=== PATIENT | female | born 1985 | race African-American/Black ===

== ENCOUNTER 2017-04-12 00:30 | Inpatient (IN) | payer BC ==
[2017-04-12 01:39] LABS: BASO % 0.3 % (0-2.0); EOS % 0.5 % (0-4.5); HEMATOCRIT 37.1 % (32.4-45.2); HEMOGLOBIN 12.2 GM/dL (10.7-15.3); LYMPH % 17.1 % (8-40); MCH 31.8 pg (25.7-33.7); MCHC 32.8 g/dl (32.0-36.0); MEAN CELL VOLUME 97.1 fl (80-96); MEAN PLT VOLUME 9.9 fl (7.5-11.1); MONO % 11.8 % (3.8-10.2); NEUT % 70.3 % (42.8-82.8); PLATELET COUNT 164 K/MM3 (134-434); RBC 3.82 M/mm3 (3.60-5.2); RDW 13.9 % (11.6-15.6); WHITE BLOOD COUNT 11.6 K/mm3 (4.0-10.0)
[2017-04-12 01:55] LABS: INR 0.92 (0.82-1.09); PROTHROMBIN TIME (PATIENT) 10.4 SEC (9.98-11.88)
[2017-04-12 01:58] LABS: ACTIVATED PTT 24.3 SECONDS (26.9-34.4)
[2017-04-12 02:01] VITALS: BMI 28.8
[2017-04-12 02:02] LABS: ANION GAP 11 (8-16); BLOOD UREA NITROGEN 9 mg/dL (7-18); CALCIUM 9.3 mg/dL (8.5-10.1); CHLORIDE 104 mmol/L (98-107); CO2 24 mmol/L (21-32); CREATININE 0.6 mg/dL (0.55-1.02); GLUCOSE,RANDOM 83 mg/dL (74-106); SODIUM 139 mmol/L (136-145)
[2017-04-12] MEDS ORDERED: FENTANYL/BUPIVACAINE/NS/PF - PCEA - 50 ML DISP.SYRIN EP ONE (02:21)
[2017-04-12] MEDS ORDERED: NALOXONE HCL 0.4 MG/ML VIAL IVPUSH PRN (02:37)
[2017-04-12] MEDS ORDERED: FENTANYL/BUPIVACAINE/NS/PF - PCEA - 50 ML DISP.SYRIN EP SCH (02:45)
[2017-04-12] MEDS ORDERED: LIDOCAINE HCL 1% PRESERVATIVE FREE - 30ML VIAL ONE (03:56)
[2017-04-12] MEDS ORDERED: OXYTOCIN 20 UNITS in 0.9% NS 20 UNIT/1,000 ML INFUS.BAG IV ONE ×4 (03:57→08:44)
--- NOTE | 2017-04-12 04:25 | HP ---
Past Medical History - Primary Care Physician PCP:: Eddie Ramos - Admission Chief Complaint: 41 weeks, labor History of Present Illness: 31 yo f g 4 p2012 edc by sono 04/07/17 in labor cx 3 cm 80 vx -2 mi, fhr cat 2.contraction irregular History Source: Patient Limitations to Obtaining History: No Limitations - Past Medical History ...: 4 ...Para: 2 ...Term: 2 ...: 0 ...Spon : 0 ...Induced : 1 ...Multiple Gestation: 0 ...LMP: 06/18/16 ... Weeks Gestation by Dates: 42.4 ...EDC by Dates: 03/25/17 ...EDC by Sono: 04/07/17 - Past Surgical History Past Surgical History: Yes: None Hx Myomectomy: No Hx Transabdominal Cerclage: No - Smoking History Smoking history: Never smoked Have you smoked in the past 12 months: No - Alcohol/Substance Use Hx Alcohol Use: No - Social History Usual Living Arrangement: Yes: With Spouse History of Recent Travel: No Home Medications - Allergies Allergies/Adverse Reactions: Allergies Allergy/AdvReac Type Severity Reaction Status Date / Time No Known Allergies Allergy Verified 01/25/15 06:56 - Home Medications Home Medications: Ambulatory Orders Vitamins (Sjr) - 1 tab PO DAILY 01/24/15 Ibuprofen [Motrin -] 400 mg PO QID #28 tablet 01/26/15 Review of Systems - Review of Systems Constitutional: reports: No Symptoms Eyes: reports: No Symptoms HENT: reports: No Symptoms Neck: reports: No Symptoms Cardiovascular: reports: No Symptoms Respiratory: reports: No Symptoms Gastrointestinal: reports: No Symptoms Genitourinary: reports: No Symptoms Breasts: reports: No Symptoms Reported Musculoskeletal: reports: No Symptoms Integumentary: reports: No Symptoms Neurological: reports: No Symptoms Endocrine: reports: No Symptoms Hematology/Lymphatic: reports: No Symptoms Psychiatric: reports: No Symptoms Physical Exam - Maternity Vital Signs: Vital Signs Temperature 98.5 F 04/12/17 03:00 Pulse Rate 89 04/12/17 02:00 Respiratory Rate 20 04/12/17 02:00 Blood Pressure 127/75 04/12/17 02:00 O2 Sat by Pulse Oximetry (%) Constitutional: Yes: Well Nourished, No Distress, Calm Eyes: Yes: WNL, Conjunctiva Clear, EOM Intact HENT: Yes: WNL, Atraumatic, Normocephalic Neck: Yes: WNL, Supple, Trachea Midline Cardiovascular: Yes: WNL, Regular Rate and Rhythm Breast(s): Yes: WNL - Abdominal Exam/OB Fundal Height: 40 Number of Fetuses: Single Presentation: Vertex Regularity: Irregular Intensity: Mod/Strong Monitor Mode: External Heart Rate Location: [facility] Category: II Accelerations: Non-Uniform Decelerations: Variable - Vaginal Exam/OB Vaginal Bleediing: Bloody Show Speculum Exam: No Dilatation (cm): 3 cm Effacement (%): 80 Amniotic Membrane Status: Bulging Presentation: Vertex/Position Station: -2 - Physical Exam Musculoskeletal: Yes: WNL Extremities: Yes: WNL Edema: Yes Edema: LLE: Trace, RLE: Trace Deep Tendon Reflex Grade: Normal +2 Psychiatric: Yes: WNL - Labs Lab Results: CBC, BMP 04/12/17 01:30 04/12/17 01:30 Hemorrhage Risk Assessment - Risk Factors Medium Risk Factors: Yes: None High Risk Factors: Yes: None Risk Score: 1 Risk Level: Medium Risk Problem List - Problems (1) with 41 completed weeks gestation Code(s): Z3A.41 - 41 WEEKS GESTATION OF (2) Labor established Code(s): GJV3301 - Assessment/Plan plan admit, monitor FH, pain management
--- NOTE | 2017-04-12 04:28 | PN ---
Progress Note (short form) - Note Progress Note: 110 am cx 3 cm 80 vx -2 , variable decel , with good recovery, and good variability, scalp electrode applied, cont heart monitroing Problem List - Problems (1) with 41 completed weeks gestation Code(s): Z3A.41 - 41 WEEKS GESTATION OF (2) Labor established Code(s): BDL9044 -
--- NOTE | 2017-04-12 04:30 | PN ---
Progress Note (short form) - Note Progress Note: 4 am , cx 9 cm vx OP .variable decel, persistant ,but good BTB and accel on scalp simulation, good recovery , will monitor closly if no descent will do c/s Problem List - Problems (1) with 41 completed weeks gestation Code(s): Z3A.41 - 41 WEEKS GESTATION OF (2) Labor established Code(s): [id number] -
[2017-04-12] MEDS ORDERED: WITCH HAZEL 50% (TUCKS) 40 PAD/JAR PAD TP PRN (04:40)
[2017-04-12] MEDS ORDERED: METHYLERGONOVINE MALEATE 0.2 MG/1 ML AMP IM PRN (04:40)
[2017-04-12] MEDS ORDERED: diphenhydrAMINE HCL 25 MG CAPSULE (FP) PO PRN (04:40)
[2017-04-12] MEDS ORDERED: IBUPROFEN 800 MG/8 ML IJ IVPB PRN ×2 (04:40→05:22)
[2017-04-12] MEDS ORDERED: BENZOCAINE 28 GM HEMORRHOIDAL OINTMENT PR PRN (04:40)
[2017-04-12] MEDS ORDERED: BENZOCAINE 20% 57 GM BOTTLE TP PRN (04:40)
[2017-04-12] MEDS ORDERED: oxyCODONE HCL 5 MG TABLET PO PRN ×2 (04:40)
[2017-04-12] MEDS ORDERED: DEXTROSE 5%-LACTATED RINGERS 1,000 ML IV SCH (04:45)
[2017-04-12] MEDS ORDERED: OXYTOCIN 20 UNITS in 0.9% NS 20 UNIT/1,000 ML INFUS.BAG IV SCH (04:45)
--- NOTE | 2017-04-12 04:50 | PN ---
Progress Note (short form) - Note Progress Note: deep variable decel cont. no descent advised c/s, rba discussed Problem List - Problems (1) with 41 completed weeks gestation Code(s): Z3A.41 - 41 WEEKS GESTATION OF (2) Labor established Code(s): [id number] -
[2017-04-12] MEDS ORDERED: ceFAZolin SODIUM 1 GM VIAL ONE ×2 (05:01→12:48)
[2017-04-12] MEDS ORDERED: OXYTOCIN 10 UNITS/ML VIAL ONE (05:01)
[2017-04-12] MEDS ORDERED: morphine SULFATE/Preservative Free 0.5 MG/ML (1cc Syringe) ONE ×7 (05:05)
[2017-04-12] MEDS ORDERED: morphine SULFATE/Preservative Free 0.5 MG/ML (1cc Syringe) EP ONE (05:21)
[2017-04-12] MEDS ORDERED: ONDANSETRON 4 MG/2 ML VIAL IVPUSH PRN (05:21)
[2017-04-12 05:35] LABS: VENOUS PC02 48.2 mmHg (38-52); VENOUS PH 7.32 (7.32-7.42); VENOUS PO2 28.5 mmHg (28-48)
[2017-04-12 05:38] LABS: ARTERIAL BLOOD GAS PCO2 72.7 mmHg (35-45); ARTERIAL BLOOD GAS PO2 7.8 mmHg (80-100); ARTERIAL BLOOD GAS pH 7.19 (7.35-7.45)
[2017-04-12] MEDS ORDERED: MEPERIDINE HCL CARPU-JECT 50 MG/1 ML DISP.SYRIN IVPUSH ONE (05:46)
[2017-04-12] MEDS ORDERED: MEPERIDINE HCL CARPU-JECT 50 MG/1 ML DISP.SYRIN ONE (05:47)
[2017-04-12] MEDS ORDERED: IBUPROFEN 800 MG/8 ML IJ IVPB ONE (10:25)
[2017-04-12] MEDS: CEFAZOLIN 1 GM PUSH 1 GM/10 ML DISP.SYRIN IVPUSH SCH ×2 (12:58→21:19)
--- NOTE | 2017-04-12 18:39 | OP ---
DATE OF OPERATION: 04/12/2017 PREOPERATIVE DIAGNOSIS: 41 weeks, labor, nonreassuring heart rate, and failure to descend. POSTOPERATIVE DIAGNOSIS: 41 weeks, labor, nonreassuring heart rate, and failure to descend. PROCEDURE: Primary low segment transverse section. SURGEON: Yesika Ramos M.D. MEDICAL VAN DRIVER: Roxanne Joshi ANESTHESIA: Epidural. ANESTHESIOLOGIST: Reed Restrepo M.D. ESTIMATED BLOOD LOSS: 500 mL. FINDINGS: A live baby boy, direct occiput posterior, cord around the neck x1, meconium amniotic fluid. OPERATION: Patient was taken to operating room with adequate epidural anesthesia. Abdomen and perineum were prepped and draped. Pfannenstiel abdominal skin incision was made. Abdominal wall was cut layer by layer until the peritoneum was exposed and incised. Upon entering the abdominal cavity, the lower uterine segment was identified, and uterovesical fold of the peritoneum was established. The bladder was pushed down. Then with the lower blade of the Belk retractor in the pelvis, a low transverse uterine incision was made. The incision extended laterally with band-aid scissors. Amniotic sac was entered. Light meconium amniotic fluid noted. Baby was in direct occiput posterior position with cord around the neck x1, which was reduced. Live baby boy was delivered without any difficulty. Apgars 9 and 9. Placenta was delivered manually. Uterine cavity was cleared of all remaining tissue. Uterine incision was closed in 2 layers, the 1st layer with 0 Biosyn continuous suture, the 2nd layer with 0 Biosyn imbricating the 1st layer. Bladder flap was closed with 0 Biosyn continuous suture. Both tubes and ovaries were checked and were normal. No active bleeding was seen. All the lap, sponge, and instrument counts were correct. Peritoneum was closed with 0 Biosyn continuous suture. Muscles were brought together with interrupted suture with 0 Biosyn. Fascia was closed with 0 Biosyn continuous sutures. Subcutaneous fat interrupted sutures 0 Biosyn, and the skin was closed with angelique. The patient tolerated the procedure well and left the OR in good condition. YESIKA RAMOS M.D. [id number]
[2017-04-13] MEDS ORDERED: BISACODYL 10 MG SUPP.RECT PR PRN (04:40)
[2017-04-13 07:03] LABS: BASO % 0.1 % (0-2.0); EOS % 0.3 % (0-4.5); HEMATOCRIT 35.5 % (32.4-45.2); HEMOGLOBIN 11.6 GM/dL (10.7-15.3); LYMPH % 12.2 % (8-40); MCH 32.1 pg (25.7-33.7); MCHC 32.7 g/dl (32.0-36.0); MEAN CELL VOLUME 98.1 fl (80-96); MEAN PLT VOLUME 10.1 fl (7.5-11.1); MONO % 11.6 % (3.8-10.2); NEUT % 75.8 % (42.8-82.8); PLATELET COUNT 143 K/MM3 (134-434); RBC 3.62 M/mm3 (3.60-5.2); RDW 13.9 % (11.6-15.6); WHITE BLOOD COUNT 15.5 K/mm3 (4.0-10.0)
--- NOTE | 2017-04-13 07:27 | PN ---
Post Progress Note - Subjective Subjective: 31 yo Para 3 status post primary , seen and evaluated. Doing well. Post Day: 1 Type of Delivery: Primary C/S Vital Signs: Vital Signs Temperature 98.2 F 04/13/17 05:36 Pulse Rate 86 04/13/17 05:36 Respiratory Rate 20 04/13/17 06:00 Blood Pressure 125/66 04/13/17 05:36 O2 Sat by Pulse Oximetry (%) 98 04/12/17 14:30 Breast Exam: Yes: Soft Uterus: Yes: Fundus Firm Incision: Yes: Dressing dry and intact Abdomen/GI: Yes: Abdomen soft, Tolerating PO Lochia: Yes: Rubra Lochia, amount: Small Extremities: Yes: Calves non-tender Perineum: Yes: Intact Activity: Ambulating - Labs Labs: CBC WBC 11.6 K/mm3 (4.0-10.0) H 04/12/17 01:30 RBC 3.82 M/mm3 (3.60-5.2) 04/12/17 01:30 Hgb 12.2 GM/dL (10.7-15.3) 04/12/17 01:30 Hct 37.1 % (32.4-45.2) 04/12/17 01:30 MCV 97.1 fl (80-96) H 04/12/17 01:30 MCH 31.8 pg (25.7-33.7) 04/12/17 01:30 MCHC 32.8 g/dl (32.0-36.0) 04/12/17 01:30 RDW 13.9 % (11.6-15.6) 04/12/17 01:30 Plt Count 164 K/MM3 (134-434) 04/12/17 01:30 MPV 9.9 fl (7.5-11.1) 04/12/17 01:30 Neutrophils % 70.3 % (42.8-82.8) 04/12/17 01:30 Lymphocytes % 17.1 % (8-40) D 04/12/17 01:30 Monocytes % 11.8 % (3.8-10.2) H 04/12/17 01:30 Eosinophils % 0.5 % (0-4.5) 04/12/17 01:30 Basophils % 0.3 % (0-2.0) 04/12/17 01:30 Problem List - Problems (1) Status post primary low transverse section Code(s): Z98.891 - HISTORY OF UTERINE SCAR FROM PREVIOUS SURGERY Assessment/Plan Status post primary Ambulation Analgesia as needed Continue routine post op care
[2017-04-13] MEDS ORDERED: DIPHTH,PERTUSS(ACELL),TET 0.5 ML DISP.SYRIN IM ONE (10:00)
[2017-04-13] MEDS: IBUPROFEN 600 MG TABLET (FP) PO PRN (12:35)
[2017-04-13] MEDS: SIMETHICONE 80 MG TAB.CHEW (FP) PO PRN (12:36)
--- NOTE | 2017-04-13 13:13 | PN ---
Progress Note (short form) - Note Progress Note: S/P C section under epidural anesthesia with duramorph unevenful.Patient stable and has a little pain for which she is on medication.No any anesthesia related problem.Patient DC from the anesthesia care.
--- NOTE | 2017-04-14 09:12 | PN ---
Post Progress Note - Subjective Subjective: 31 yo Para 3 status post primary seen and evaluated. Doing well. Post Day: 2 Type of Delivery: Primary C/S Vital Signs: Vital Signs Temperature 99.1 F 04/14/17 08:32 Pulse Rate 72 04/14/17 08:32 Respiratory Rate 18 04/14/17 08:32 Blood Pressure 129/69 04/14/17 08:32 O2 Sat by Pulse Oximetry (%) 98 04/12/17 14:30 Breast Exam: Yes: Soft Uterus: Yes: Fundus Firm Incision: Yes: Dressing dry and intact Abdomen/GI: Yes: Abdomen soft Lochia: Yes: Rubra Lochia, amount: Small Extremities: Yes: Calves non-tender Perineum: Yes: Intact Activity: Ambulating - Labs Labs: CBC WBC 15.5 K/mm3 (4.0-10.0) H D 04/13/17 06:15 RBC 3.62 M/mm3 (3.60-5.2) 04/13/17 06:15 Hgb 11.6 GM/dL (10.7-15.3) 04/13/17 06:15 Hct 35.5 % (32.4-45.2) 04/13/17 06:15 MCV 98.1 fl (80-96) H 04/13/17 06:15 MCH 32.1 pg (25.7-33.7) 04/13/17 06:15 MCHC 32.7 g/dl (32.0-36.0) 04/13/17 06:15 RDW 13.9 % (11.6-15.6) 04/13/17 06:15 Plt Count 143 K/MM3 (134-434) 04/13/17 06:15 MPV 10.1 fl (7.5-11.1) 04/13/17 06:15 Neutrophils % 75.8 % (42.8-82.8) 04/13/17 06:15 Lymphocytes % 12.2 % (8-40) D 04/13/17 06:15 Monocytes % 11.6 % (3.8-10.2) H 04/13/17 06:15 Eosinophils % 0.3 % (0-4.5) 04/13/17 06:15 Basophils % 0.1 % (0-2.0) 04/13/17 06:15 Problem List - Problems (1) Status post primary low transverse section Code(s): Z98.891 - HISTORY OF UTERINE SCAR FROM PREVIOUS SURGERY Assessment/Plan Status post primary Ambulation Analgesia as needed Continue routine post op care
[2017-04-14] MEDS ORDERED: SENNOSIDES/DOCUSATE COMBO (SENNA PLUS) TABLET (UD) PO PRN (22:00)
[2017-04-15] MEDS: SIMETHICONE 80 MG TAB.CHEW (FP) PO PRN (05:29)
[2017-04-15] MEDS: IBUPROFEN 600 MG TABLET (FP) PO PRN (05:29)
[2017-04-15 07:44] LABS: BASO % 0.2 % (0-2.0); EOS % 0.5 % (0-4.5); HEMATOCRIT 31.4 % (32.4-45.2); HEMOGLOBIN 10.5 GM/dL (10.7-15.3); LYMPH % 13.4 % (8-40); MCH 32.4 pg (25.7-33.7); MCHC 33.4 g/dl (32.0-36.0); MEAN CELL VOLUME 97.2 fl (80-96); MEAN PLT VOLUME 10.1 fl (7.5-11.1); MONO % 10.6 % (3.8-10.2); NEUT % 75.3 % (42.8-82.8); PLATELET COUNT 161 K/MM3 (134-434); RBC 3.23 M/mm3 (3.60-5.2); RDW 13.9 % (11.6-15.6); WHITE BLOOD COUNT 10.2 K/mm3 (4.0-10.0)
[2017-04-15 07:45] VITALS: TEMP 99
[2017-04-15 10:32] VITALS: BP 136/78; PULSE 82
--- NOTE | 2017-04-15 11:56 | DS ---
Physical Exam-RIBBER Vital Signs: Vital Signs Temperature 99 F 04/15/17 07:44 Pulse Rate 82 04/15/17 10:00 Respiratory Rate 20 04/15/17 10:00 Blood Pressure 136/78 04/15/17 10:00 O2 Sat by Pulse Oximetry (%) 98 04/12/17 14:30 Constitutional: Yes: Well Nourished Eyes: Yes: Conjunctiva Clear HENT: Yes: Atraumatic Neck: Yes: Supple Cardiovascular: Yes: Regular Rate and Rhythm Respiratory: Yes: Regular, CTA Bilaterally External Genitalia: Yes: Normal Vaginal Exam: Yes: Normal Cervix: Yes: Normal Uterus: Yes: Firm Wound/Incision: Yes: Well Approximated, Farrell Intact Neurological: Yes: Alert, Oriented ...Motor Strength: WNL Psychiatric: Yes: Alert, Oriented Labs: CBC, BMP 04/15/17 06:50 04/12/17 01:30 Delivery - Delivery Type of Anesthesia: Epidural EBL (cc): 500 Delivery, Single - Stages of Labor Date 1st Stage Initiatied: 04/11/17 Time 1st Stage Initiated: 22:00 Date of Delivery: 04/12/17 Time of Delivery: 05:02 Time Placenta Delivered: 05:03 - 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[place] Present: Yes Name: Reema Pa Infant Gender: Male Weight: 7 lb 1 oz Position: OP Total Hours ROM (Hrs/Mins): 3 HOURS/52 MINUTES - 1 Minute Total Score: 9 5 Minutes Total Score: 9 - Feeding Plan Initial Plan: Elected not to breastfeed exclusively throughout hospitalization Discharge Summary Reason For Visit: LABOR ADMIT Current Active Problems Labor established (Acute) with 41 completed weeks gestation (Acute) Status post primary low transverse section (Acute) Procedures: Principal: Primary Hospital Course: Routine post op care Condition: Good - Instructions Diet, Activity, Other Instructions: Regular diet No driving, no lifting x 4 weeks. F/U in clinic in 1 week Disposition: HOME - Home Medications Comprehensive Discharge Medication List: Ambulatory Orders Vitamins (Sjr) - 1 tab PO DAILY 01/24/15 Ferrous Sulfate [Iron] 325 mg PO DAILY 04/12/17
== END 2017-04-15 13:24 | disposition home or self-care (01) | DRG 766 ==
LOC: JLDR 00:30 → J3W 14:44
PROVIDERS: ADMIT Obstetrics & Gynecology; ATTEND Obstetrics & Gynecology
PROC: 10D00Z1 Extraction of Products of Conception, Low, Open Approach (ICD-10-PCS; principal; 2017-04-12)
DX: O48.0 Post-term pregnancy (principal); O76 Abnormality in fetal heart rate and rhythm complicating labor and delivery; O62.0 Primary inadequate contractions; O69.81X0 Labor and delivery complicated by cord around neck, without compression, not applicable or unspecified; O77.0 Labor and delivery complicated by meconium in amniotic fluid; Z3A.41 41 weeks gestation of pregnancy; Z37.0 Single live birth
CPT/HCPCS: 36415; 36600; 80048; 82803; 85025; 85610; 85730; 86593; 86850; 86900; 86901; 90715